=== PATIENT | male | born 1980 | race Caucasian/White ===

== ENCOUNTER 2021-02-01 17:01 | Inpatient (IN) ==
[2021-02-01 17:37] LABS: ABS Basophils 0.1 10^3/ul (0-0.2); ABS Lymphocytes 2.2 10^3/ul (1.0-4.8); ABS Monocytes 0.6 10^3/ul (0-0.8); ABS Neutrophils 4.2 10^3/ul (1.5-7.7); Eosinophil % 0.5 %; Hematocrit 44 % (42-52); Lymphocyte % 31.3 %; Mean Corpuscular HGB Conc 34 g/dL (31-36); Mean Corpuscular Hemoglobin 29 pg (27-31); Mean Corpuscular Volume 85 fL (80-94); Mean Platelet Volume 8.6 fL (7.4-10.4); Platelet Count 259 10^3/uL (150-450); Red Blood Count 5.17 10^6 /uL (4.18-5.48); Red Cell Distribution Width 13 % (10-15); White Blood Count 7.1 10^3/uL (3.5-10.8)
[2021-02-01 18:04] LABS: ALT 14 U/L (7-52); AST 18 U/L (13-39); Albumin 4.8 g/dL (3.2-5.2); Albumin/Globulin Ratio 1.8 (1-3); Alkaline Phosphatase 67 U/L (34-104); Anion Gap 12 mmol/L (2-11); BUN/Creatinine Ratio 11.5 (8-20); Blood Urea Nitrogen 10 mg/dL (6-24); CO2 Carbon Dioxide 22 mmol/L (22-32); Chloride 105 mmol/L (101-111); EGFR African American 118.2 (>60); EGFR Non-African American 97.7 (>60); Globulin 2.6 g/dL (2-4); Glucose 114 mg/dL (70-100); Potassium 3.7 mmol/L (3.5-5.0); Sodium 139 mmol/L (135-145); Total Protein 7.4 g/dL (6.4-8.9)
[2021-02-01 18:29] LABS: TSH Ultra Thyroid Stim Horm 0.57 mcIU/mL (0.34-5.60)
[2021-02-01 18:34] LABS: Troponin I 0.01 ng/mL (<0.03)
[2021-02-01 18:36] LABS: Alcohol, S < 10 mg/dL (<10); Salicylate < 2.50 mg/dL (<30)
[2021-02-01] MEDS ORDERED: LORazepam 2 mg VIAL 1 ml ONE (18:37)
[2021-02-01 18:39] LABS: Acetaminophen < 15 mcg/mL
[2021-02-01] MEDS ORDERED: diPHENhydraMINE IV 50 MG/ML 1 ml VIAL (BENADRYL) ONE (18:45)
[2021-02-01] MEDS ORDERED: Haloperidol 5 mg/ml SDV IV/IM 5 MG/ML AMP ONE (18:45)
[2021-02-01] MEDS ORDERED: Al Hydrox/Mg Hydrox/Simet LIQ 30 ML UDC PO PRN (23:09)
[2021-02-02] MEDS: Nicotine PATCH 7 MG/24 HR PATCH TRANSDERM SCH ×2 (01:01→09:32)
[2021-02-02] MEDS: Vitamin THERAPEUTIC TAB PO SCH (09:32)
[2021-02-02] MEDS: Nicotine GUM 2MG FRUIT FLAVOR PO PRN ×4 (12:55→23:44)
[2021-02-02] MEDS: Nicotine PATCH 21 MG/24 HR PATCH TRANSDERM SCH (14:03)
[2021-02-02 18:21] LABS: Urine Appearance Cloudy; Urine Bilirubin Negative (Negative); Urine Blood 1+ (Negative); Urine Color Yellow; Urine Glucose Negative (Negative); Urine Ketones Negative (Negative); Urine Nitrite Negative (Negative); Urine Protein Negative (Negative); Urine Specific Gravity 1.029 (1.010-1.030); Urine Urobilinogen Negative (Negative)
[2021-02-02 18:25] LABS: Urine Bacteria Absent (Absent); Urine Red Blood Cell Trace(0-2/hpf) (Absent); Urine White Blood Cell Trace(0-5/hpf) (Absent)
[2021-02-02 18:58] LABS: Urine Benzodiazepine Screen None Detected (None Detect); Urine Cannabinoids Screen None Detected (None Detect); Urine Opiates Screen None Detected (None Detect)
[2021-02-03] MEDS: Nicotine PATCH 21 MG/24 HR PATCH TRANSDERM SCH (07:40)
[2021-02-03] MEDS: Vitamin THERAPEUTIC TAB PO SCH (07:40)
[2021-02-03] MEDS: Nicotine GUM 2MG FRUIT FLAVOR PO PRN ×4 (08:43→21:57)
[2021-02-03] MEDS: Lithium Carbonate ER 450mg TAB PO SCH ×2 (20:18→21:41)
[2021-02-04] MEDS: Vitamin THERAPEUTIC TAB PO SCH (07:25)
[2021-02-04] MEDS: Nicotine PATCH 21 MG/24 HR PATCH TRANSDERM SCH (07:25)
[2021-02-04] MEDS: Nicotine GUM 2MG FRUIT FLAVOR PO PRN ×4 (07:25→21:14)
[2021-02-04] MEDS: Lithium Carbonate ER 450mg TAB PO SCH (21:14)
[2021-02-05] MEDS: Nicotine GUM 2MG FRUIT FLAVOR PO PRN ×5 (03:24→20:52)
[2021-02-05] MEDS: Nicotine PATCH 21 MG/24 HR PATCH TRANSDERM SCH (07:22)
[2021-02-05] MEDS: Vitamin THERAPEUTIC TAB PO SCH (07:23)
[2021-02-05] MEDS: Lithium Carbonate ER 450mg TAB PO SCH (20:52)
[2021-02-06] MEDS: Nicotine GUM 2MG FRUIT FLAVOR PO PRN ×6 (05:28→21:01)
[2021-02-06] MEDS: Nicotine PATCH 21 MG/24 HR PATCH TRANSDERM SCH (09:10)
[2021-02-06] MEDS: Vitamin THERAPEUTIC TAB PO SCH (09:10)
[2021-02-06] MEDS: Lithium Carbonate ER 450mg TAB PO SCH (21:00)
[2021-02-07] MEDS: Nicotine GUM 2MG FRUIT FLAVOR PO PRN ×4 (04:32→14:51)
[2021-02-07] MEDS: Vitamin THERAPEUTIC TAB PO SCH (07:36)
[2021-02-07] MEDS: Nicotine PATCH 21 MG/24 HR PATCH TRANSDERM SCH (07:37)
[2021-02-07 08:52] LABS: HDL Cholesterol 59.6 mg/dL
[2021-02-07] MEDS ORDERED: chlorproMAZINE 25 MG/ML 2 ML (50 MG) ONE (14:35)
[2021-02-07] MEDS ORDERED: chlorproMAZINE 25 MG/ML 2 ML (50 MG) IM ONE (14:38)
[2021-02-08] MEDS: Lithium Carbonate ER 450mg TAB PO SCH ×2 (02:33→21:06)
[2021-02-08] MEDS: Nicotine GUM 2MG FRUIT FLAVOR PO PRN ×7 (09:23→23:58)
[2021-02-08] MEDS: Nicotine PATCH 21 MG/24 HR PATCH TRANSDERM SCH (09:23)
[2021-02-08] MEDS: Vitamin THERAPEUTIC TAB PO SCH (09:23)
[2021-02-09] MEDS: Nicotine GUM 2MG FRUIT FLAVOR PO PRN ×3 (03:46→08:32)
[2021-02-09] MEDS: Nicotine PATCH 21 MG/24 HR PATCH TRANSDERM SCH (08:31)
[2021-02-09] MEDS: Vitamin THERAPEUTIC TAB PO SCH (08:32)
[2021-02-09 09:03] VITALS: BP 149/99
== END 2021-02-09 11:45 | disposition home or self-care (01) | DRG 753 ==
LOC: ED 17:01 → BSU 22:51
PROVIDERS: ADMIT Psychiatry & Neurology Psychiatry; ATTEND Psychiatry & Neurology Psychiatry

== ENCOUNTER 2021-03-16 07:26 | Inpatient (IN) ==
[2021-03-16 08:22] LABS: ABS Basophils 0.1 10^3/ul (0-0.2); ABS Eosinophils 0.1 10^3/ul (0-0.6); ABS Monocytes 0.8 10^3/ul (0-0.8); ABS Neutrophils 6.5 10^3/ul (1.5-7.7); Hematocrit 46 % (42-52); Hemoglobin 15.5 g/dL (14.0-18.0); Lymphocyte % 28.4 %; Mean Corpuscular HGB Conc 34 g/dL (31-36); Mean Corpuscular Hemoglobin 29 pg (27-31); Mean Corpuscular Volume 85 fL (80-94); Mean Platelet Volume 8.5 fL (7.4-10.4); Platelet Count 300 10^3/uL (150-450); Red Blood Count 5.34 10^6 /uL (4.18-5.48); Red Cell Distribution Width 13 % (10-15); White Blood Count 10.5 10^3/uL (3.5-10.8)
[2021-03-16 08:28] LABS: Urine Appearance Clear; Urine Bilirubin Negative (Negative); Urine Blood Negative (Negative); Urine Color Amber; Urine Glucose Negative (Negative); Urine Ketones Trace (Negative); Urine Nitrite Negative (Negative); Urine Protein 1+(30 mg/dL) (Negative); Urine Urobilinogen Negative (Negative)
[2021-03-16 08:36] LABS: Urine Bacteria Absent (Absent); Urine Red Blood Cell Absent (Absent); Urine White Blood Cell Absent (Absent)
[2021-03-16 08:43] LABS: ALT 19 U/L (7-52); Albumin 4.7 g/dL (3.2-5.2); Albumin/Globulin Ratio 1.7 (1-3); Alkaline Phosphatase 84 U/L (34-104); Blood Urea Nitrogen 15 mg/dL (6-24); CO2 Carbon Dioxide 26 mmol/L (22-32); Calcium 9.3 mg/dL (8.6-10.3); Chloride 101 mmol/L (101-111); EGFR African American 96.2 (>60); EGFR Non-African American 79.5 (>60); Globulin 2.8 g/dL (2-4); Glucose 104 mg/dL (70-100); Sodium 134 mmol/L (135-145); Total Protein 7.5 g/dL (6.4-8.9)
[2021-03-16 08:44] LABS: Alcohol, S < 10 mg/dL (<10); Salicylate < 2.50 mg/dL (<30)
[2021-03-16 08:45] LABS: Acetaminophen < 15 mcg/mL
[2021-03-16 08:46] LABS: Urine Benzodiazepine Screen None Detected (None Detect); Urine Cannabinoids Screen None Detected (None Detect); Urine Opiates Screen None Detected (None Detect)
[2021-03-16 08:55] LABS: TSH Ultra Thyroid Stim Horm 2.61 mcIU/mL (0.34-5.60)
[2021-03-16 09:31] LABS: Anion Gap 7 mmol/L (2-11); Potassium 4.1 mmol/L (3.5-5.0)
[2021-03-16 09:35] LABS: AST 39 U/L (13-39)
[2021-03-16] MEDS ORDERED: Al Hydrox/Mg Hydrox/Simet LIQ 30 ML UDC PO PRN (10:33)
[2021-03-16] MEDS ORDERED: Paliperidone SUSTENNA 234 MG/1.5 ML IM ONE (10:35)
[2021-03-16 13:09] VITALS: BP 132/99
[2021-03-16] MEDS ORDERED: diPHENhydraMINE IV 50 MG/ML 1 ml VIAL (BENADRYL) ONE (19:27)
[2021-03-16] MEDS ORDERED: chlorproMAZINE 25 MG/ML 2 ML (50 MG) ONE ×2 (19:29→19:32)
[2021-03-16] MEDS ORDERED: chlorproMAZINE 25 MG/ML 2 ML (50 MG) IM ONE (20:00)
[2021-03-16] MEDS ORDERED: diPHENhydraMINE IV 50 MG/ML 1 ml VIAL (BENADRYL) IM ONE (20:00)
[2021-03-16] MEDS: Nicotine GUM 4MG FRUIT FLAVOR PO PRN (20:25)
[2021-03-17] MEDS ORDERED: chlorproMAZINE 25 MG/ML 2 ML (50 MG) IM ONE (08:00)
[2021-03-17 08:01] LABS: HDL Cholesterol 52.4 mg/dL
[2021-03-17] MEDS ORDERED: diPHENhydraMINE IV 50 MG/ML 1 ml VIAL (BENADRYL) IM ONE (08:01)
[2021-03-17] MEDS: Nicotine GUM 4MG FRUIT FLAVOR PO PRN (08:02)
[2021-03-17] MEDS ORDERED: Nicotine PATCH 21 MG/24 HR PATCH ONE (08:10)
[2021-03-20] MEDS ORDERED: Paliperidone SUSTENNA 156 MG/1 ML IM ONE (09:00)
== END 2021-03-17 11:30 | disposition home or self-care (01) | DRG 753 ==
LOC: ED 07:26 → BSU 11:13
PROVIDERS: ADMIT Psychiatry & Neurology Psychiatry; ATTEND Psychiatry & Neurology Psychiatry